=== PATIENT | male | born 1980 | race Caucasian/White ===

== ENCOUNTER 2023-05-14 08:30 | Emergency (ER) | payer SELFPAY ==
[~2023-05-14] VITALS: Ht 182.9 cm; Wt 90.7 kg
[2023-05-14 08:30] VITALS: BP_SYST 115; PULSE 95; RESP 18; TEMP 97.5; O2SAT 96
[2023-05-14] MEDS ORDERED: CLIN-142 PO (09:20)
[2023-05-14 09:39] VITALS: BP_SYST 115; PULSE 94; RESP 18; TEMP 97.4; O2SAT 96
== END 2023-05-14 09:44 | disposition home or self-care (01) ==
LOC: SED 08:30
DX: L02.412 Cutaneous abscess of left axilla (principal); Z79.899 Other long term (current) drug therapy
CPT/HCPCS: 99283

== ENCOUNTER 2024-06-14 23:43 | Emergency (ER) | payer MEDICAID ==
[~2024-06-14] VITALS: Ht 175.3 cm; Wt 81.6 kg
[~2024-06-14 23:43] MED LIST: CLIN-142 PO
[2024-06-14 23:47] VITALS: BP_SYST 138; PULSE 108; RESP 18; TEMP 98.3; O2SAT 96
[2024-06-15 04:53] VITALS: BP_SYST 138; PULSE 108; RESP 18; TEMP 98.3; O2SAT 96
[2024-06-15] MEDS ORDERED: NACL 0.9% 1,000 ML IV ONE (05:00)
== END 2024-06-15 05:05 | disposition home or self-care (01) ==
LOC: SED 23:43
DX: Z48.00 Encounter for change or removal of nonsurgical wound dressing (principal)
CPT/HCPCS: 99283